=== PATIENT | female | born 1940 | race Hispanic/Latino ===

== ENCOUNTER 2016-10-25 13:50 | Outpatient (CLI) | payer MEDICARE ==
--- NOTE | 2016-10-26 13:33 | Mammography Report ---
BILATERAL DIGITAL SCREENING MAMMOGRAM with CAD: 10/25/16 13:50:00 CLINICAL: Routine screening. COMPARISON:06/24/15 FINDINGS: The breasts are heterogeneously dense, which may obscure small masses. No mass, architectural distortion or suspicious calcifications. IMPRESSION: No mammographic evidence of malignancy. BI-RADS CATEGORY: 1 - - Negative RECOMMENDATION: Routine mammographic screening in one year. COMMENT: Patient follow-up letters are generated by our [employer] application.
== END 2016-10-25 13:51 | disposition home or self-care (01) ==
LOC: SPVWC 13:50
PROVIDERS: ATTEND Obstetrics & Gynecology Gynecology
DX: Z12.31 Encounter for screening mammogram for malignant neoplasm of breast (principal)
CPT/HCPCS: 77067; G0202

== ENCOUNTER 2017-11-29 11:26 | Day surgery (SDC) | payer MEDICARE ==
[~2017-11-29 11:26] MED LIST: IOPIDINE ONE; NEOFRIN ONE
[2017-11-29] MEDS ORDERED: MYDRIACYL OD ONE (11:43)
[2017-11-29] MEDS ORDERED: IOPIDINE OD ONE ×2 (11:43→12:52)
[2017-11-29] MEDS ORDERED: NEOFRIN OD ONE (11:43)
[2017-11-29 13:45] VITALS: BP 116/40
== END 2017-11-29 12:46 | disposition home or self-care (01) ==
LOC: OR 11:26
PROVIDERS: ATTEND Specialist
DX: H26.491 Other secondary cataract, right eye (principal); M81.0 Age-related osteoporosis without current pathological fracture

== ENCOUNTER 2018-02-27 11:44 | Outpatient (CLI) | payer MEDICARE ==
--- NOTE | 2018-02-27 13:13 | Mammography Report ---
BONE DENSITY STUDY: Osteoporosis screening. DEFINITIONS: BMD = Bone Mineral Density T-score = BMD related to mean peak bone mass of young adult (mean expressed in Standard Deviation) Z-score = Age matched BMD expressed in SD World Health Organization (WHO) Diagnostic Criteria Normal T-score > -1 SD Osteopenia T-score between -1 and -2.4 SD Osteoporosis T-score -2.5 SD or below FINDINGS: The weighted average BMD of lumbar spine L1-L4 is 0.778 with a T-score of -2.4. The weighted average BMD of the left hip is 0.676 with a T-score of -2.2. Compared to prior examination in January 2016 there has been a slight decrease in the overall mineralization of the left hip with an overall increase in the mineralization of the lumbar spine. IMPRESSION: The patient's average T-score is diagnostic for osteoporosis and high relative risk for fracture. NOTE: BMD is not the only risk factor for fracture; also consider factors such as the patient's age, risk of falling, previous osteoporotic fracture, family history of osteoporotic fractures, current smoker, and low body weight. Noonan's triangle is a region of interest in femur, predominantly of trabecular bone. It is not a true anatomic site, and [facility] does not recommend its use clinically.
== END 2018-02-27 11:45 | disposition home or self-care (01) ==
LOC: SPVWC 11:44
PROVIDERS: ATTEND Obstetrics & Gynecology Gynecology
DX: M81.0 Age-related osteoporosis without current pathological fracture (principal); F17.210 Nicotine dependence, cigarettes, uncomplicated; Z88.0 Allergy status to penicillin
CPT/HCPCS: 77080

== ENCOUNTER 2018-05-23 11:22 | Day surgery (SDC) | payer MEDICARE ==
[2018-05-23 11:44] VITALS: BP 112/68
[2018-05-23] MEDS ORDERED: IOPIDINE ONE (12:04)
[2018-05-23] MEDS ORDERED: MYDRIACYL ONE (12:04)
[2018-05-23] MEDS ORDERED: AK-Dilate ONE (12:05)
[2018-05-23] MEDS ORDERED: IOPIDINE OS ONE (12:33)
[2018-05-23] MEDS ORDERED: AK-Dilate OS ONE (12:34)
[2018-05-23] MEDS ORDERED: MYDRIACYL OS ONE (12:34)
== END 2018-05-23 12:40 | disposition home or self-care (01) ==
LOC: OR 11:22
PROVIDERS: ATTEND Specialist
DX: H26.492 Other secondary cataract, left eye (principal); M81.0 Age-related osteoporosis without current pathological fracture; Z88.0 Allergy status to penicillin; Z79.899 Other long term (current) drug therapy; Z98.42 Cataract extraction status, left eye; Z98.41 Cataract extraction status, right eye; Z72.89 Other problems related to lifestyle; Z98.890 Other specified postprocedural states; Z80.8 Family history of malignant neoplasm of other organs or systems

== ENCOUNTER 2021-05-25 13:13 | Outpatient (CLI) | payer MEDICARE, BC ==
--- NOTE | 2021-05-25 15:21 | Mammography Report ---
DEXA BONE DENSITY SCAN INDICATION: OSTEOPOROSIS, postmenopausal female COMPARISON: 02/27/2018 LUMBAR SPINE (L1-L4): Bone mineral density (BMD) is 0.759 g/cm2. T-score is -2.6 (standard deviations of Young Adult mean). Z-score is 0.1 (standard deviations of Age Matched mean). LEFT FEMORAL NECK: Bone mineral density (BMD) is 0.588 g/cm2. T-score is -2.4 (standard deviations of Young Adult mean). Z-score is 0.0 (standard deviations of Age Matched mean). DENSITOMETRY TRENDS: Lumbar change from prior study: Decreased 2.5%. Femoral neck mean change from previous study: Decreased 2.4%. IMPRESSION: 1. WHO Classification: Osteoporosis. Fracture Risk: High. Signer Name: Gucci Irwin MD Signed: 05/25/2021 3:16 PM Workstation Name: [id number]
--- NOTE | 2021-05-26 09:41 | Mammography Report ---
DIGITAL SCREENING MAMMOGRAM WITH TOMOSYNTHESIS WITH CAD, 05/25/2021 CLINICAL INFORMATION / INDICATION: Routine Screening Mammography. TECHNIQUE: Digital bilateral 2D and 3D mammography with tomosynthesis was obtained in the craniocaud al and mediolateral oblique projections. Computer-Aided Detection (CAD) analysis was used for interp retation of this study. COMPARISON: 10/25/16, 06/24/15 FINDINGS: Breast Density: The breasts are heterogeneously dense, which may obscure small masses. No dominant mass, suspicious calcifications, or architectural distortion in either breast. IMPRESSION: No mammographic evidence of malignancy. Follow up recommendation: Routine yearly BI-RADS Category 1: Negative. A "normal" or negative report should not discourage follow up or biopsy of a clinically significant f inding. A written summary of these findings will be mailed to the patient. The patient will be entered into a mammography reporting system which will generate a reminder letter for the patient's next appointmen t at the appropriate interval. The [employer] recommends yearly mammograms starting at age 40 and continuing as l liz as a woman is in good health. Breast MRI is recommended for women with an approximate 20-25% or greater lifetime risk of breast cancer, including women with a strong family history of breast or ova alden cancer or who have been treated for Hodgkin's disease. Signer Name: Herlinda Valdez MD Signed: 05/26/2021 9:36 AM Workstation Name: [id number]
== END 2021-05-25 13:14 | disposition home or self-care (01) ==
LOC: SPVWC 13:13
PROVIDERS: ATTEND Obstetrics & Gynecology
DX: Z12.31 Encounter for screening mammogram for malignant neoplasm of breast (principal); M81.0 Age-related osteoporosis without current pathological fracture
CPT/HCPCS: 77063; 77067; 77080